=== PATIENT | male | born 1980 | race Two or more races ===

== ENCOUNTER 2017-05-30 09:31 | Emergency (ER) | payer BC ==
[~2017-05-30] VITALS: Ht 188 cm; Wt 95.3 kg
[2017-05-30 09:44] VITALS: BP 137/85
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
--- NOTE | 2017-05-30 10:27 | Diagnostic Imaging Report ---
Indications: Trauma to right fifth finger, pain Technique: 3 views right fifth finger Findings: Comparison: None There is oblique fracture through the dorsal aspect of the base of the fifth distal phalanx, extending to the distal articular surface. Mild comminution is present. The main proximal fracture fragment demonstrates several millimeters dorsal and proximal distraction. Surrounding soft tissues are swollen. No additional fracture, dislocation, joint space widening, soft tissue gas or foreign body, or other acute change identified. IMPRESSION: Hyperflexion avulsion fracture base fifth distal phalanx as described, apparently closed
[2017-05-30 11:25] VITALS: BP 137/88
--- NOTE | 2017-05-30 11:30 | Diagnostic Imaging Report ---
Indications: Right fourth finger trauma and pain Technique: 2 views right fourth finger. Findings: Comparison: None No fracture, dislocation, joint space widening , surrounding soft tissue swelling/foreign body/gas, or other acute changes are identified. Splint has been applied to right fifth finger. Degree of reduction of previously demonstrated fracture is indeterminate. IMPRESSION: No evidence of acute injury right fourth finger Interval splinting of right fifth finger.
== END 2017-05-30 11:25 | disposition home or self-care (01) ==
LOC: EMR 09:49
DX: S63.619A Unspecified sprain of unspecified finger, initial encounter (principal); W22.8XXA Striking against or struck by other objects, initial encounter; Y93.9 Activity, unspecified; Y92.9 Unspecified place or not applicable; S62.636A Displaced fracture of distal phalanx of right little finger, initial encounter for closed fracture; M20.011 Mallet finger of right finger(s)
CPT/HCPCS: 29130; 99284